=== PATIENT | female | born 1970 ===

== ENCOUNTER 2020-11-08 09:49 | Emergency (ER) | payer SELFPAY ==
[~2020-11-08] VITALS: Ht 170.2 cm; Wt 70.5 kg
[2020-11-08 10:10] VITALS: BP 105/54; Ht 170.2 cm; Wt 70.5 kg
[2020-11-08] MEDS ORDERED: CYCLOBENZAPRINE10 MG PO (10:32)
[2020-11-08] MEDS ORDERED: ACETAMINOPHEN500 M1 PO (10:32)
[2020-11-08] MEDS ORDERED: CEPHALEXIN500 M1 PO (10:32)
[2020-11-08] MEDS ORDERED: IBUPROFEN800 MG PO (10:32)
== END 2020-11-08 11:05 | disposition home or self-care (01) ==
LOC: D.ER 09:49
DX: J02.0 Streptococcal pharyngitis (principal)